=== PATIENT | male | born 2000 | race Caucasian/White ===

== ENCOUNTER 2023-07-01 00:58 | Emergency (ER) | payer BC ==
[2023-07-01] MEDS ORDERED: cefTRIAXone 2 GM in Sodium Chloride 0.9% 100 ML IV ONE (01:57)
[2023-07-01] MEDS ORDERED: Rabies Immune Globulin PF 150 Units/ML 2 ML SDV IM ONE (01:58)
[2023-07-01] MEDS ORDERED: Rabies Vaccine (Avian) 2.5 Unit Inj Kit IM ONE (01:59)
[2023-07-01] MEDS ORDERED: Diphtheria,Pertussis(Acell),Tetanus Vaccine 0.5 ML Syringe IM ONE (02:02)
[2023-07-01] MEDS ORDERED: Rabies Immune Globulin/PF (HyperRAB) 300 UNIT/ML 5 ML SDV IM ONE (02:30)
== END 2023-07-01 03:41 | disposition home or self-care (01) ==
LOC: JD.ED 00:58
DX: S61.052A Open bite of left thumb without damage to nail, initial encounter (principal); Z88.7 Allergy status to serum and vaccine; W64.XXXA Exposure to other animate mechanical forces, initial encounter
CPT/HCPCS: 90375; 90471; 90675; 90715; 96372; 96374; 99283; J0696; J3490